=== PATIENT | female | born 1940 | race Caucasian/White ===

== ENCOUNTER → 2017-12-16 | Day surgery (SDC) | payer MEDICARE, BC ==
[2017-12-11 12:29] LABS: BASOPHILS % 0.3 % (0.0-1.0); EOSINOPHILS # (AUTO) 0.2 (0.0-0.4); EOSINOPHILS % 1.8 % (0.0-6.0); HEMATOCRIT 35.1 % (34.2-44.1); HEMOGLOBIN 11.7 g/dL (12.0-16.0); LYMPHOCYTES # (AUTO) 7.9 (1.0-3.2); LYMPHOCYTES % 65.7 % (18.0-39.1); MEAN CORPUSCULAR HEMOGLOBIN 30.8 pg (28-32); MEAN CORPUSCULAR HGB CONC 33.3 g/dL (31-35); MEAN CORPUSCULAR VOLUME 92.4 fL (81-99); MONOCYTES # (AUTO) 0.7 (0.2-0.8); MONOCYTES % 5.4 % (4.4-11.3); NEUTROPHILS # (AUTO) 3.2 (2.1-6.9); NEUTROPHILS % 26.6 % (38.7-80.0); PLATELET COUNT 233 x10e3/uL (140-360)
--- NOTE | 2017-12-11 13:18 | Diagnostic Imaging Report ---
PROCEDURE:CHEST 2 VIEWS TECHNIQUE:PA and lateral chest INDICATION:Preoperative evaluation for chest x-ray COMPARISON:None. FINDINGS: The lungs are clear and symmetrically inflated. No pleural effusions. Normal heart size, mediastinal contour and pulmonary vasculature. Scoliosis. Intact skeleton. CONCLUSION: Scoliosis without acute abnormality. Dictated by: Hollis Negrete M.D. on 12/11/2017 at 13:19 Electronically approved by: Hollis Negrete M.D. on 12/11/2017 at 13:19
[~2017-12-16] MED LIST: ATORVASTATIN CA20 MG PO; CARTIA XT240 MG PO; CEFTRIAXONE SOD 1 GM VIAL ONE; CELEBREX200 MG PO; CLONAZEPAM0.5 MG PO; DEXAMETHASONE SOD PHOS INJ 4 MG/ML VIAL ONE; EVISTA60 MG PO; FENTANYL CITRATE/PF 100MCG/2 ML INJ ONE; LIDOCAINE HCL 2% LOCAL INJ 5 ML SDV VIAL INJ ONE; METOPROLOL SUCC25 MG PO; MULTIVITAMINS1 EAC7 PO; ONDANSETRON HCL INJ 2 MG/ML VIAL ONE; OSCAL PO; PROPOFOL IV EMULSION 10 MG/ML 20 ML VIAL ONE; SERTRALINE HCL100 MG PO; SEVOFLURANE INHAL SOLN 250 ML PEN BTL ONE; SYNTHROID100 MCG PO
--- OUTSIDE RECORDS SUMMARY | 2017-12-16 12:16 | XMS REPORT | Clinical Summary ---
Author Author [facility] Address Unknown Phone Unavailable Care Team Providers Care Supervisor Metal Hanging Name Role Phone Deana Li MD PCP Allergies Active Allergy Reactions Severity Noted Date Comments Clindamycin Rash Low 08/18/2017 Current Medications Prescription Sig. Disp. Refills Start End Date Status Date CARTIA XT 240 mg 24 hr 05/29/20 Active capsule 17 clonAZEPAM (KlonoPIN) 0.5 08/10/19 Active MG tablet 18 levothyroxine (SYNTHROID, 07/18/20 Active LEVOXYL) 100 mcg tablet 17 metoprolol succinate XL 07/18/20 Active (TOPROL-XL) 25 mg 24 hr 17 tablet raloxifene (EVISTA) 60 mg 06/19/20 Active tablet 17 celecoxib (CeleBREX) 200 05/29/20 Active MG capsule 17 ipratropium (ATROVENT) Take 500 mcg by Active 0.02 % nebulizer solution nebulization 4 (four) times a day. atorvastatin (LIPITOR) 20 Take 20 mg by mouth Active MG tablet daily. Default OP ins sertraline (ZOLOFT) 100 08/10/19 Active MG tablet 18 calcium carbonate-vitamin Take 1 tablet by mouth 2 Active D3 (CALCIUM 500 + D) 500 (two) times a day with mg-200 unit per tablet meals. multivitamins & Take 15 mL by mouth Active minerals-ferrous daily. gluconate 9 mg iron/15 mL liquid Active Problems Problem Noted Date Leiomyoma 08/31/2017 Encounters Date Type Specialty Care Team Description 09/25/2017 Telephone Obstetrics and Gynecology Waqas Barnard MA 08/31/2017 Office Visit Obstetrics and Gynecology Cat Miramontes MD Intramural and submucous leiomyoma of uterus (Primary Dx) 08/31/2017 Procedure visit Obstetrics and Gynecology Cat Miramontes MD Uterine leiomyoma, unspecified location 08/18/2017 Office Visit Obstetrics and Gynecology Cat Miramontes MD Screening for cervical cancer (Primary Dx); Pap smear for cervical cancer screening; Uterine leiomyoma, unspecified location; Recto-vaginal fistula; Wellness examination 08/13/2017 Telephone Obstetrics and Gynecology Waqas Barnard MA after 12/15/2016 Social History Tobacco Use Types Packs/Day Years Used Date Never Smoker Smokeless Tobacco: Never Used Alcohol Use Drinks/Week oz/Week Comments Yes 1 Glasses of 0.6 social wine Sex Assigned at Date Recorded Not on file Last Filed Vital Signs Vital Sign Reading Time Taken Blood Pressure 138/70 08/31/2017 2:06 PM AVIONICS MECHANIC Pulse 69 08/31/2017 2:06 PM AVIONICS MECHANIC Temperature 36.7 C (98.1 F) 08/31/2017 2:06 PM AVIONICS MECHANIC Respiratory Rate - - Oxygen Saturation - - Inhaled Oxygen - - Concentration Weight 49.4 kg (109 lb) 08/31/2017 2:06 PM AVIONICS MECHANIC Height 157.5 cm (5' 2") 08/18/2017 2:03 PM AVIONICS MECHANIC Body Mass Index 19.94 08/31/2017 2:06 PM AVIONICS MECHANIC Plan of Treatment Health Maintenance Due Date Last Done Comments SHINGRIX VACCINE (#1) 10/14/1991 ZOSTER VACCINE 2001 PNEUMOCOCCAL 2006 POLYSACCHARIDE VACCINE AGE 65 AND OVER PNEUMOCOCCAL-13 2006 INFLUENZA VACCINE 02/17/2018 Results * US Pelvis Complete (HMSJ and AMB In-Clinic ONLY) (08/31/2017 1:54 PM) Specimen Performing Laboratory [facility] [address] [place] [id number] Narrative Uterus: 8cm Fibroid #1: 6.9cm fundal fibroid Fibroid #2: 1.9cm fundal fibroid Endometrium: 1mm Right Ovary: Not visible Left Ovary: Not visible Bilateral adnexa normal. * THINPREP TIS PAP REFLEX HPV mRNA E6/E7 (08/18/2017 2:19 PM) Component Value Ref Range Clinical information None given Date of last menstrual NONE GIVEN period Prev. pap: NONE GIVEN Prev. bx: NONE GIVEN Source None given Statement of adequacy Comment: Satisfactory for evaluation. Endocervical/transformation zone component present. Interpretation/result: Comment: Negative for intraepithelial lesion or malignancy. Atrophic pattern; predominantly parabasal cells Comment Comment: This Pap test has been evaluated with computer assisted technology. Belly Dancer Comment: PATTI CT(ASCP) CT screening location: [place] [address] [address], [facility] [address] Specimen Performing Laboratory [facility] after 12/15/2016 Insurance Payer Benefit Subscriber ID Type Phone Address Plan / Group MEDICARE MEDICARE xxxxxxxxxx Medicare [place], [place] PART A AND B BCBS BCBS xxxxxxxxxxxx PPO CHOICE PPO/BHAKTI OMALLEY PPO
--- OUTSIDE RECORDS SUMMARY | 2017-12-16 12:16 | XMS REPORT ---
Author Author [facility] Address Unknown Phone Unavailable Care Team Providers Care Tourist Home Keeper Name Role Phone ALESSIA GARCIA Unavailable Unavailable Problems This patient has no known problems. Allergies, Adverse Reactions, Alerts This patient has no known allergies or adverse reactions. Medications This patient has no known medications. Results Test Description Test Time Test Comments Text Results Atomic Results Result Comments CHEST 2 VIEWS [place] [address] Patient Name: RAFY WADDELL MR #: [id number] : 1940 Age/Sex: 77/F Req #: [id number] Adm Physician: Ordered by: ALESSIA GARCIA MD Report #: [id number] Location: OR Room/Bed: Procedure: [id number] DX/CHEST 2 VIEWS Exam Date: 12/11/17 Exam Time: 1306 REPORT STATUS: Signed PROCEDURE: CHEST 2 VIEWS TECHNIQUE: PA and lateral chest INDICATION: Preoperative evaluation for chest x-ray COMPARISON: None. FINDINGS: The lungs are clear and symmetrically inflated. No pleural effusions. Normal heart size, mediastinal contour and pulmonary vasculature. Scoliosis. Intact skeleton. CONCLUSION: Scoliosis without acute abnormality. Dictated by: Sruthi Negrete M.D. on 12/11/2017 at 13:19 Electronically approved by: Sruthi Negrete M.D. on 12/11/2017 at 13:19 Dictated By: SRUTHI NEGRETE MD 131 Transcribed By: MIKO on 12/11/17 1319 COPY TO: ALESSIA GARCIA MD
--- NOTE | 2017-12-16 13:32 | Diagnostic Imaging Report ---
PROCEDURE:X-RAY ABDOMEN - KUB COMPARISON:Patients [facility], DX, CHEST 2 VIEWS, 12/11/2017, 12:53. INDICATIONS:PRE-OPERTIVE KUB FOR LASER RENAL SURGERY FINDINGS: There is a non-obstructed bowel-gas pattern. 3 small oval calcific densities projected on the lower pole of the left kidney the largest measuring approximately 0.6 cm. 3.6 mm calcific density projected on the right upper quadrant medially, nonspecific. Bilateral costochondral calcifications. The lung bases are clear. Multilevel degenerative changes and rotatory levoscoliosis of the lumbar spine. DJD of SI joints bilaterally. CONCLUSION: Left nephrolithiasis. Karly Rodriguez M.D. Dictated by: Karly Rodriguez M.D. on 12/16/2017 at 13:34 Electronically approved by: Karly Rodriguez M.D. on 12/16/2017 at 13:34
--- NOTE | 2017-12-16 16:06 | Operative Report ---
DATE OF PROCEDURE: December 16, 2017 PREOPERATIVE DIAGNOSIS: Left kidney stone. POSTOPERATIVE DIAGNOSIS: Left kidney stone. PROCEDURE: Staged shockwave lithotripsy ANESTHESIA: General. ESTIMATED BLOOD LOSS: Minimal. COMPLICATIONS: None. INDICATIONS: Ms. Cadet is a 77-year-old female who has intermittent left renal colic. She presented with multiple left renal calculi. She and I had a long discussion regarding the alternatives, risks and benefits, including doing nothing, shockwave lithotripsy, ureteroscopy, percutaneous surgery, open surgery. She voiced an understanding of the options, the alternatives, and the risks and benefits, and she elected to proceed. PROCEDURE IN DETAIL: After informed consent was obtained, the patient was taken to the operative suite and placed supine on the operating table and underwent general anesthesia by the anesthesia service. The stone was localized in the X, the Y and the Z planes. A total of 3000 shocks were delivered to the stone. The patient tolerated the procedure well and was transported to the recovery room in excellent condition. No untoward effects were noted. Job#: [id number]
== END | disposition home or self-care (01) ==
LOC: OR 12:13
PROVIDERS: ATTEND Urology
DX: N20.0 Calculus of kidney (principal); R32 Unspecified urinary incontinence; N35.9 Urethral stricture, unspecified; N39.0 Urinary tract infection, site not specified; I10 Essential (primary) hypertension; E03.9 Hypothyroidism, unspecified; F32.9 Major depressive disorder, single episode, unspecified; F41.9 Anxiety disorder, unspecified; Z88.3 Allergy status to other anti-infective agents; Z01.810 Encounter for preprocedural cardiovascular examination; Z01.812 Encounter for preprocedural laboratory examination; Z01.818 Encounter for other preprocedural examination; Z84.1 Family history of disorders of kidney and ureter
CPT/HCPCS: 36415; 50590; 71046; 74018; 85025; 93005; J0696; J1100; J2001; J2405

== ENCOUNTER → 2018-02-25 | Outpatient (CLI) | payer MEDICARE, BC ==
[~2018-02-25] MED LIST changes: -CEFTRIAXONE SOD 1 GM VIAL ONE; -DEXAMETHASONE SOD PHOS INJ 4 MG/ML VIAL ONE; -FENTANYL CITRATE/PF 100MCG/2 ML INJ ONE; -LIDOCAINE HCL 2% LOCAL INJ 5 ML SDV VIAL INJ ONE; -ONDANSETRON HCL INJ 2 MG/ML VIAL ONE; -PROPOFOL IV EMULSION 10 MG/ML 20 ML VIAL ONE; -SEVOFLURANE INHAL SOLN 250 ML PEN BTL ONE
--- NOTE | 2018-02-25 15:58 | Diagnostic Imaging Report ---
PROCEDURE:X-RAY ABDOMEN - KUB COMPARISON:Patients [facility], DX, ABDOMEN-1VIEW (KUB), 12/16/2017, 13:11. INDICATIONS:CALCULUS OF KIDNEY FINDINGS: There is a non-obstructed bowel-gas pattern. Stable grouped calcifications projecting in the lower pole. The left renal shadow, with the largest measuring approximately 6 mm. An additional 2 mm radiopaque density is noted in the mid to inferior left renal shadow. No radiopaque densities project over the right renal shadow. The previously visualized 3.6 mm calcific density in the right upper quadrant is not clearly seen on the current exam. No acute bony abnormalities. Unchanged multilevel degenerative changes and rotatory levoscoliosis of the lumbar spine. CONCLUSION: 1. Stable grouped nonobstructing calculi projecting in the inferior pole of the left renal shadow. An additional 2 mm radiopaque calculus is noted in the mid to inferior left kidney Umer Hester M.D. Dictated by: Umer Hester M.D. on 02/25/2018 at 16:03 Electronically approved by: Umer Hester M.D. on 02/25/2018 at 16:03
== END ==
LOC: RAD 14:29
PROVIDERS: ATTEND Urology
DX: N20.0 Calculus of kidney (principal)
CPT/HCPCS: 74018

== ENCOUNTER → 2018-06-22 | Outpatient (CLI) | payer MEDICARE, BC ==
--- NOTE | 2018-06-22 14:00 | Diagnostic Imaging Report ---
Exam: KUB. Clinical History: Calculus of kidney Comparison: None Findings: Frontal view of the abdomen demonstrates a nonobstructive bowel gas pattern with moderate retained stool. Numerous calcifications are seen over the left kidney. The largest measures approximately 9 mm. Rotatory scoliosis of the lumbar spine concave to the right. Impression: Numerous calcifications are seen over the left kidney. The largest measures approximately 9 mm. Renal ultrasound may be of benefit. Signed by: Dr. Silverio Chang M.D. on 06/22/2018 1:56 PM
== END ==
LOC: RAD 12:57
PROVIDERS: ATTEND Urology
DX: N20.0 Calculus of kidney (principal)
CPT/HCPCS: 74018

== ENCOUNTER → 2018-08-11 | Day surgery (SDC) | payer MEDICARE, BC ==
[2018-08-06 14:06] LABS: BASOPHILS % 0.3 % (0.0-1.0); EOSINOPHILS # (AUTO) 0.3 (0.0-0.4); EOSINOPHILS % 2.6 % (0.0-6.0); HEMATOCRIT 34.4 % (34.2-44.1); HEMOGLOBIN 11.3 g/dL (12.0-16.0); LYMPHOCYTES # (AUTO) 7.7 (1.0-3.2); MEAN CORPUSCULAR HEMOGLOBIN 30.8 pg (28-32); MEAN CORPUSCULAR HGB CONC 32.8 g/dL (31-35); MEAN CORPUSCULAR VOLUME 93.7 fL (81-99); MONOCYTES % 8.8 % (4.4-11.3); NEUTROPHILS # (AUTO) 2.4 (2.1-6.9); NEUTROPHILS % 21.1 % (38.7-80.0); PLATELET COUNT 221 x10e3/uL (140-360); RED BLOOD COUNT 3.67 x10e6/uL (3.6-5.1)
[2018-08-06 15:38] LABS: EOSINOPHILS % (MANUAL) 1 % (0-7); LYMPHOCYTES % (MANUAL) 69 % (19-48); METAMYELOCYTES % (MANUAL) 1 % (0-0); MONOCYTES % (MANUAL) 6 % (3.4-9.0); NEUTROPHILS % (MANUAL) 19 % (40-74); PLATELET ESTIMATE ADEQUATE; PLATELET MORPHOLOGY COMMENT NORMAL; RBC MORPHOLOGY COMMENT NORMAL; SMUDGE CELLS FEW
[~2018-08-11] MED LIST changes: +CEFTRIAXONE SOD 1 GM/NS 50 ML 50 ML IV ONE; +DEXAMETHASONE SOD PHOS INJ 4 MG/ML VIAL ONE; +FENTANYL CITRATE/PF 100MCG/2 ML INJ ONE; +LIDOCAINE HCL 2% LOCAL INJ 5 ML SDV VIAL INJ ONE; +LOSARTAN POTAS100 MG PO; +MIDAZOLAM HCL 2 MG/2 ML VIAL ONE; +PROPOFOL IV EMULSION 10 MG/ML 20 ML VIAL ONE; +SEVOFLURANE INHAL SOLN 250 ML PEN BTL ONE
--- OUTSIDE RECORDS SUMMARY | 2018-08-11 11:33 | XMS REPORT | Clinical Summary ---
Author Author [facility] Address Unknown Phone Unavailable Care Team Providers Care Logging Equipment Operator Name Role Phone Liset Li MD PCP Allergies Comments Active Allergy Reactions Severity Noted Date Clindamycin Rash Low 08/18/2017 Medications End Date Status Medication Sig Dispensed Refills Start Date Active CARTIA XT 240 mg 24 hr 0 capsule 7 Active clonAZEPAM (KlonoPIN) 0.5 0 MG tablet 8 Active levothyroxine (SYNTHROID, 0 LEVOXYL) 100 mcg tablet 7 Active metoprolol succinate XL 0 (TOPROL-XL) 25 mg 24 hr 7 tablet Active raloxifene (EVISTA) 60 mg 0 tablet 7 Active celecoxib (CeleBREX) 200 0 MG capsule 7 Active ipratropium (ATROVENT) Take 500 mcg 0 0.02 % nebulizer solution by nebulization 4 (four) times a day. Active atorvastatin (LIPITOR) 20 Take 20 mg by 0 MG tablet mouth daily. Default OP ins Active sertraline (ZOLOFT) 100 0 MG tablet 8 Active calcium carbonate-vitamin Take 1 tablet 0 D3 (CALCIUM 500 + D) 500 by mouth 2 mg-200 unit per tablet (two) times a day with meals. Active multivitamins & Take 15 mL by 0 minerals-ferrous mouth daily. gluconate 9 mg iron/15 mL liquid Active Problems Problem Noted Date Leiomyoma 08/31/2017 Encounters Care Team Description Date Type Specialty Waqas Barnard MA 09/25/2017 Telephone Obstetrics and Gynecology Cat Miramontes MD Intramural and submucous leiomyoma of uterus (Primary Dx) 08/31/2017 Office Visit Obstetrics and Gynecology Cat Miramontes MD Uterine leiomyoma, unspecified location 08/31/2017 Procedure visit Obstetrics and Gynecology Cat Miramontes MD Screening for cervical cancer (Primary Dx); Pap smear for cervical cancer screening; Uterine leiomyoma, unspecified location; Recto-vaginal fistula; Wellness examination 08/18/2017 Office Visit Obstetrics and Gynecology Waqas Barnard MA 08/13/2017 Telephone Obstetrics and Gynecology after 08/10/2017 Social History Date Tobacco Use Types Packs/Day Years Used Never Smoker Smokeless Tobacco: Never Used Alcohol Use Drinks/Week oz/Week Comments Yes 1 Glasses of 0.6 social wine Sex Assigned at Date Recorded Not on file Industry Job Start Date Occupation Not on file Not on file Not on file Travel End Travel History Travel Start No recent travel history available. Last Filed Vital Signs Time Taken Vital Sign Reading 08/31/2017 2:06 PM COMPENSATION DIRECTOR Blood Pressure 138/70 08/31/2017 2:06 PM COMPENSATION DIRECTOR Pulse 69 08/31/2017 2:06 PM COMPENSATION DIRECTOR Temperature 36.7 C (98.1 F) - Respiratory Rate - - Oxygen Saturation - - Inhaled Oxygen - Concentration 08/31/2017 2:06 PM COMPENSATION DIRECTOR Weight 49.4 kg (109 lb) 08/18/2017 2:03 PM COMPENSATION DIRECTOR Height 157.5 cm (5' 2") 08/31/2017 2:06 PM COMPENSATION DIRECTOR Body Mass Index 19.94 Plan of Treatment Health Maintenance Due Date Last Done Comments SHINGLES VACCINES (1 of 10/14/1991 2) PNEUMOCOCCAL 2006 POLYSACCHARIDE VACCINE AGE 65 AND OVER PNEUMOCOCCAL-13 2006 INFLUENZA VACCINE 02/17/2018 Procedures Comments Procedure Name Priority Date/Time Associated Diagnosis US PELVIS COMPLETE (AMB Routine 08/31/2017 Uterine leiomyoma, IN-CLINIC ONLY) 1:54 PM COMPENSATION DIRECTOR unspecified location THINPREP TIS PAP REFLEX Routine 08/18/2017 Screening for cervical HPV MRNA E6/E7 2:19 PM COMPENSATION DIRECTOR cancer after 08/10/2017 Results * US Pelvis Complete (HMSJ and AMB In-Clinic ONLY) (08/31/2017 1:54 PM COMPENSATION DIRECTOR) Narrative Performed At [facility] Uterus: 8cm Fibroid #1: 6.9cm fundal fibroid Fibroid #2: 1.9cm fundal fibroid Endometrium: 1mm Right Ovary: Not visible Left Ovary: Not visible Bilateral adnexa normal. Performing Organization Address City/[facility]/Zipcode Phone Number [address] [address] [place] [address] * THINPREP TIS PAP REFLEX HPV mRNA E6/E7 (08/18/2017 2:19 PM COMPENSATION DIRECTOR) Clinical information None given [facility] [place] Date of last menstrual NONE GIVEN [facility] period [place] Prev. pap: NONE GIVEN [facility] [place] Prev. bx: NONE GIVEN [facility] [place] Source None given [facility] [place] Statement of adequacy Comment: [facility] Satisfactory for evaluation. [place] Endocervical/transformation zone component present. Interpretation/result: Comment: [facility] Negative for intraepithelial [place] lesion or malignancy. Atrophic pattern; predominantly parabasal cells Comment Comment: [facility] This Pap test has been [place] evaluated with computer assisted technology. Electronic Publisher Comment: [facility] YL, CT(ASCP) [place] CT screening location: [address] [address] Specimen Swab Resulting Agency Comment Performing Organization Information: Site ID: [id number] Name: [facility] Address: [address] [place] [id number] Director: Kristen Berry MD Performing Organization Address City/[facility] [place] [address] [place] [phone] after 08/10/2017 Insurance Payer Benefit Subscriber ID Type Phone Address Plan / Group MEDICARE MEDICARE xxxxxxxxxx Medicare [place], [place] PART A AND B BCBS BCBS xxxxxxxxxxxx PPO CHOICE PPO/FEDERA L EMPL PPO Advance Directives Patient has advance care planning documents on file. For more information, gin carpio contact: Ryan Kunz [address] [place] [address]
--- NOTE | 2018-08-11 14:06 | Diagnostic Imaging Report ---
Exam: KUB. Clinical History: Renal calcifications Comparison: KUB 06/22/2018. Findings: Frontal view of the abdomen demonstrates a nonobstructive bowel gas pattern with moderate retained stool. Bowel gas partially obscures visualization of the kidneys. Multiple calcifications project over the left kidney, largest measuring approximately 7 mm in the inferior pole. Levoconvex scoliosis of the lumbar spine. No acute osseous abnormality. Impression: Numerous calcifications are seen over the left kidney, measuring up to 7 mm in the inferior pole. Signed by: Dr. Mandy Pederson MD on 08/11/2018 2:02 PM
--- NOTE | 2018-08-11 15:04 | Operative Report ---
DATE OF PROCEDURE: August 11, 2018 PREOPERATIVE DIAGNOSIS: Left kidney stone. POSTOPERATIVE DIAGNOSIS: Left kidney stone. ANESTHESIA: General. ESTIMATED BLOOD LOSS: Minimal. COMPLICATIONS: None. INDICATIONS FOR PROCEDURE: Ms. Cadet is a very pleasant 77-year-old female with a symptomatic left-sided kidney stone. She and I had a long discussion about alternatives, risks and benefits, including doing nothing, shock wave lithotripsy, ureteroscopy, percutaneous surgery and open surgery. She voiced understanding of the options, alternatives, risks, and benefits and elected to proceed. PROCEDURE IN DETAIL: After informed consent was obtained, the patient was taken to the operative suite, placed supine and underwent general anesthesia by the anesthesia service. The stone was then localized in the X, Y and Z planes. A total of 3000 shocks were delivered to the stone at a maximum power setting of 6. The patient tolerated the procedure well and was transported to the recovery room in excellent condition with no untoward events noted. Job#: [id number] [place]
[2018-08-11 16:05] VITALS: BP 157/84
== END | disposition home or self-care (01) ==
LOC: OR 11:30
PROVIDERS: ATTEND Urology
DX: N20.0 Calculus of kidney (principal); R32 Unspecified urinary incontinence; N39.0 Urinary tract infection, site not specified; N35.92 Unspecified urethral stricture, female; R09.82 Postnasal drip; I10 Essential (primary) hypertension; E03.9 Hypothyroidism, unspecified; F41.9 Anxiety disorder, unspecified; Z88.3 Allergy status to other anti-infective agents; Z88.2 Allergy status to sulfonamides; Z01.810 Encounter for preprocedural cardiovascular examination; Z01.812 Encounter for preprocedural laboratory examination; Z84.1 Family history of disorders of kidney and ureter
CPT/HCPCS: 36415; 50590; 74018; 85025; 93005; J0696; J1100; J2001; J2250; J2704

== ENCOUNTER → 2018-09-15 | Outpatient (CLI) | payer MEDICARE, BC ==
[~2018-09-15] MED LIST changes: -CEFTRIAXONE SOD 1 GM/NS 50 ML 50 ML IV ONE; -DEXAMETHASONE SOD PHOS INJ 4 MG/ML VIAL ONE; -FENTANYL CITRATE/PF 100MCG/2 ML INJ ONE; -LIDOCAINE HCL 2% LOCAL INJ 5 ML SDV VIAL INJ ONE; -MIDAZOLAM HCL 2 MG/2 ML VIAL ONE; -PROPOFOL IV EMULSION 10 MG/ML 20 ML VIAL ONE; -SEVOFLURANE INHAL SOLN 250 ML PEN BTL ONE
--- NOTE | 2018-09-15 12:42 | Diagnostic Imaging Report ---
Exam: KUB -one view Clinical History: Renal calcifications Comparison: KUB 08/11/2018. Findings: Bowel gas partially obscures visualization of the kidneys. Similar appearance of 7 mm and a 5 mm calcification projecting over the left lower pole kidney. No evidence of calcification overlying the expected location of the ureters. There are calcified phleboliths in the pelvis. Nonobstructive bowel gas pattern with moderate retained stool. Levoconvex scoliosis of the lumbar spine. No acute osseous abnormality. Impression: Similar appearance of left lower pole renal stones measuring up to 7 mm. Signed by: Dr. Mandy Pederson MD on 09/15/2018 12:38 PM
== END ==
LOC: RAD 11:49
PROVIDERS: ATTEND Urology
DX: N20.0 Calculus of kidney (principal)
CPT/HCPCS: 74018

== ENCOUNTER → 2018-12-20 | Outpatient (CLI) | payer MEDICARE, BC ==
--- NOTE | 2018-12-20 14:28 | Diagnostic Imaging Report ---
Exam: KUB - one view Clinical History: Renal stone. Comparison: KUB 09/15/2018. Findings: Bowel gas partially obscures visualization of the left kidney. Left lower pole renal stones are more conspicuous compared to the prior study. There are multiple adjacent left lower pole stones, measuring up to 7 mm. No evidence of calcification overlying the expected location of the ureters or the right kidney. There are calcified phleboliths in the pelvis. Nonobstructive bowel gas pattern. Levoconvex scoliosis of the lumbar spine. No acute osseous abnormality. Impression: Multiple left lower pole renal stones, measuring up to 7 mm. Signed by: Dr. Mandy Pederson MD on 12/20/2018 2:24 PM
== END ==
LOC: RAD 13:36
PROVIDERS: ATTEND Urology
DX: N20.0 Calculus of kidney (principal)
CPT/HCPCS: 74018

== ENCOUNTER → 2019-07-01 | Outpatient (CLI) | payer MEDICARE, BC ==
--- NOTE | 2019-07-01 13:41 | Diagnostic Imaging Report ---
Exam: KUB - one view Clinical History: Renal stone. Comparison: KUB 12/20/2018. Findings: Bowel gas partially obscures visualization of the left kidney. There are multiple left renal stones, measuring up to 7 mm in the lower pole. Possible 5 mm right upper pole stone. No evidence of calcification overlying the expected location of the ureters. Nonobstructive bowel gas pattern. Levoconvex scoliosis of the lumbar spine. No acute osseous abnormality. Impression: Multiple left renal stones, measuring up to 7 mm. Possible 5 mm right upper pole renal stone. Signed by: Dr. Mandy Pederson MD on 07/01/2019 1:37 PM
== END ==
LOC: RAD 12:34
PROVIDERS: ATTEND Urology
DX: N20.0 Calculus of kidney (principal)
CPT/HCPCS: 74018